=== PATIENT | female | born 1965 | race Caucasian/White ===

== ENCOUNTER → 2019-08-11 17:59 | Outpatient (BNVA) | payer BC, SELFPAY | PROVIDERS: Visit Provider Nurse Practitioner Family | DX: M79.671 Pain in right foot (principal) | CPT/HCPCS: 73630 ==

== ENCOUNTER → 2023-01-05 15:36 | Outpatient (BNVA) | payer OTHER, SELFPAY | PROVIDERS: Visit Provider Emergency Medicine | DX: S82.832A Other fracture of upper and lower end of left fibula, initial encounter for closed fracture (principal); W01.0XXA Fall on same level from slipping, tripping and stumbling without subsequent striking against object, initial encounter | CPT/HCPCS: 73610 ==

== ENCOUNTER → 2023-01-09 10:28 | Outpatient (BNVA) | payer OTHER, SELFPAY | PROVIDERS: Referring Provider Emergency Medicine; Visit Provider Podiatrist Foot & Ankle Surgery | DX: S82.402A Unspecified fracture of shaft of left fibula, initial encounter for closed fracture; W54.1XXA Struck by dog, initial encounter | CPT/HCPCS: 99203 ==

== ENCOUNTER → 2023-01-16 13:02 | Outpatient (BNVA) | payer OTHER, SELFPAY | PROVIDERS: Visit Provider Podiatrist Foot & Ankle Surgery | DX: S92.302A Fracture of unspecified metatarsal bone(s), left foot, initial encounter for closed fracture; S82.402A Unspecified fracture of shaft of left fibula, initial encounter for closed fracture; X58.XXXA Exposure to other specified factors, initial encounter | CPT/HCPCS: 73630; 99213 ==

== ENCOUNTER → 2023-01-30 10:34 | Outpatient (BNVA) | payer OTHER, SELFPAY | PROVIDERS: Visit Provider Podiatrist Foot & Ankle Surgery | DX: S92.332A Displaced fracture of third metatarsal bone, left foot, initial encounter for closed fracture; S92.335A Nondisplaced fracture of third metatarsal bone, left foot, initial encounter for closed fracture; S82.492A Other fracture of shaft of left fibula, initial encounter for closed fracture; X58.XXXA Exposure to other specified factors, initial encounter | CPT/HCPCS: 29405; 73630; 99213 ==

== ENCOUNTER → 2023-02-15 13:16 | Outpatient (BNVA) | payer OTHER, SELFPAY | PROVIDERS: Visit Provider Podiatrist Foot & Ankle Surgery | DX: S92.302A Fracture of unspecified metatarsal bone(s), left foot, initial encounter for closed fracture (principal); S82.402A Unspecified fracture of shaft of left fibula, initial encounter for closed fracture; X58.XXXA Exposure to other specified factors, initial encounter | CPT/HCPCS: 73610; 73630 ==

== ENCOUNTER 2023-02-15 14:40 | Outpatient (CLI) | payer OTHER, SELFPAY | END 2023-02-15 14:41 | disposition home or self-care (01) | LOC: SPT 14:41 | PROVIDERS: Visit Provider Podiatrist Foot & Ankle Surgery | DX: Z46.89 Encounter for fitting and adjustment of other specified devices (principal); S92.302D Fracture of unspecified metatarsal bone(s), left foot, subsequent encounter for fracture with routine healing; S82.402D Unspecified fracture of shaft of left fibula, subsequent encounter for closed fracture with routine healing; X58.XXXD Exposure to other specified factors, subsequent encounter; M25.572 Pain in left ankle and joints of left foot | CPT/HCPCS: 97760; 99213; L1902 ==

== ENCOUNTER → 2023-03-05 13:56 | Outpatient (BNVA) | payer OTHER, SELFPAY | PROVIDERS: Visit Provider Podiatrist Foot & Ankle Surgery | DX: S92.302A Fracture of unspecified metatarsal bone(s), left foot, initial encounter for closed fracture (principal); S82.402A Unspecified fracture of shaft of left fibula, initial encounter for closed fracture; X58.XXXA Exposure to other specified factors, initial encounter | CPT/HCPCS: 99213 ==

== ENCOUNTER → 2023-03-21 14:51 | Outpatient (BNVA) | payer OTHER, SELFPAY | PROVIDERS: Visit Provider Podiatrist Foot & Ankle Surgery | DX: S82.402A Unspecified fracture of shaft of left fibula, initial encounter for closed fracture; W19.XXXA Unspecified fall, initial encounter | CPT/HCPCS: 73630; 99213 ==

== ENCOUNTER → 2023-04-09 12:53 | Outpatient (BNVA) | payer OTHER, SELFPAY | PROVIDERS: Visit Provider Podiatrist Foot & Ankle Surgery | DX: S92.335D Nondisplaced fracture of third metatarsal bone, left foot, subsequent encounter for fracture with routine healing; S92.325D Nondisplaced fracture of second metatarsal bone, left foot, subsequent encounter for fracture with routine healing; S92.342D Displaced fracture of fourth metatarsal bone, left foot, subsequent encounter for fracture with routine healing; X58.XXXD Exposure to other specified factors, subsequent encounter | CPT/HCPCS: 73630; 99213 ==

== ENCOUNTER → 2023-10-11 14:09 | Outpatient (BNVA) | payer OTHER, SELFPAY | PROVIDERS: PCP Family Medicine; Visit Provider Nurse Practitioner | DX: M79.671 Pain in right foot (principal); Z23 Encounter for immunization | CPT/HCPCS: 73630 ==

== ENCOUNTER 2024-02-03 03:03 | Emergency (ER) | payer OTHER, SELFPAY ==
[2024-02-03 03:15] VITALS: BP 151/79; PULSE 81; RESP 20; TEMP 37.1; O2SAT 98; BMI 36.8
[2024-02-03 04:34] VITALS: BP 128/63; PULSE 76; RESP 18; O2SAT 96
[2024-02-03] MEDS: amoxicillin-clav 875-125 mg Tablet 1 TAB PO (05:44)
[2024-02-03] MEDS: dexamethasone 4 mg Tablet 10 MG PO (05:44)
[2024-02-03 05:46] VITALS: BP 129/77; PULSE 78; RESP 16; O2SAT 98
[2024-02-03 05:47] VITALS: BP 129/77; RESP 16; TEMP 37.1; O2SAT 98
--- NOTE | 2024-02-03 05:52 | ED_ITS ---
HPI - URI/Sore Throat General: Chief Complaint: Upper Respiratory Infection Stated Complaint: left side face swelling, slight sob Time Seen by Provider: 02/03/24 04:55 History of Present Illness: 58 year old female presenting with left sided neck swelling. She states that she has been sick for five days or so with upper respiratory symptoms. She has a history of sick contacts. She figured she may have COVID or the flu. She seemed to be getting over her symptoms, but last evening, began to have swelling of the left side of her neck. She says that there is a ?lymph node? that is swollen and tender in the area. She is not having trouble breathing period her throat is not sore. No skin lesions around that area. No fever. Related Data Home Medications Medication Instructions Recorded Confirmed amlodipine 10 mg tablet 10 mg PO DAILY 08/11/19 10/28/23 cyclobenzaprine 15 mg 15 mg PO DAILY 01/05/23 10/28/23 capsule,extended release 24 hr diclofenac potassium 25 mg tablet mg PO 01/05/23 10/28/23 escitalopram oxalate 10 mg tablet 10 mg PO DAILY 01/05/23 10/28/23 glipizide 10 mg tablet, extended 10 mg PO DAILY 01/05/23 10/28/23 release 24 hr hydrochlorothiazide 25 mg tablet 25 mg PO DAILY 01/05/23 10/28/23 pioglitazone 15 mg tablet (Actos) 15 mg PO DAILY 01/05/23 10/28/23 tramadol 50 mg tablet 50 mg PO DAILY 01/05/23 10/28/23 Previous Rx's Medication Instructions Recorded cam walker #1 ea 01/05/23 crutch #2 ea 01/05/23 ASO #1 ea 02/15/23 amoxicillin 500 mg tablet 1,000 mg (2 x 500 mg) PO BID 10 10/28/23 days #40 tabs amoxicillin 875 mg-potassium 1 tab PO BID #20 tabs 02/03/24 clavulanate 125 mg tablet Allergies Allergy/AdvReac Type Severity Reaction Status Date / Time lisinopril AdvReac Mild shortness Verified 10/28/23 12:52 of breath meloxicam [From Mobic] AdvReac Mild rash Verified 10/28/23 12:52 PFS ED PFSH: Social History Smoking and tobacco/nicotine status: current every day tobacco/nicotine user Alcohol intake: never Substance/Drug Use: never Adopted: No Physical Exam Const: COMMON NORMALS: no acute distress GENERAL APPEARANCE: cooperative; not ill appearing and not frail appearing HENMT: COMMON NORMALS: normocephalic, atraumatic and Normal external nose present HEAD & SCALP: normocephalic and atraumatic FACE & SINUS: normal facial exam and face symmetric NOSE: Normal external nose present and Abnormal mucous membranes and turbinates present erythematous Eye: COMMON NORMALS: Equal, round and reactive pupils present and EOMs intact bilaterally PUPIL: Yes Equal, round and reactive pupils present Neck/C-Spine: GENERAL: Yes trachea midline Lymph: LYMPHATIC: lymphadenopathy (left submandibular. single swollen tender node) Chest: CHEST: Yes Symmetrical chest wall rise Resp: COMMON NORMALS: normal respiratory effort, No retractions, No use of accessory muscles and clear to auscultation bilaterally AUSCULTATION: clear to auscultation bilaterally Cardio: COMMON NORMALS: regular rate and regular rhythm RATE: regular rate RHYTHM: regular rhythm GI: COMMON NORMALS: Normal to inspection, nondistended, normoactive bowel sounds present Extremity: COMMON NORMALS: no pedal edema Neuro: NUSRAT COMA SCALE: document GCS findings Nusrat coma scale eye opening: Spontaneous Nusrat coma scale verbal response: Orientated Nusrat coma scale motor response: [place] commands [place] coma scale total score: 15 SENSORY EXAM: Yes extremities (intact) Psych: COMMON NORMALS: speech normal SPEECH: Yes normal speech Skin: COMMON NORMALS: no rashes or lesions noted GENERAL SKIN EXAM: no rashes or lesions noted Course Vital Signs: Vital signs: Vital Signs Temperature 98.8 F 02/03/24 05:47 Pulse Rate 78 02/03/24 05:46 Respiratory Rate 16 02/03/24 05:47 Blood Pressure 129/77 02/03/24 05:47 Pulse Oximetry 98 02/03/24 05:47 Oxygen Delivery Me thod Room Air 02/03/24 05:46 MDM - URI/Sore Throat Medical Decision Making The patient is afebrile here. vitals are normal. There's no airway compromise. She does have a tender, swollen mass inferior to the angle of her mandible. It is not fluctuant. Clinically appears to be a lymph node. Discuss laboratory workup and imaging, but at this point, it likely would not currency exchange specialist. She was given a dose of dexamethasone for the swelling here. She'll be placed on antibiotics. Close outpatient follow up this week. She knows to return for worsening swelling or pain despite treatment, any other new symptoms. No radiology studies performed this visit Discharge Plan Discharge Patient Disposition: Home Clinical Impression: Lymphadenitis Condition: Stable Prescriptions: New amoxicillin-pot clavulanate 875-125 mg tablet 1 tab PO BID Qty: 20 0RF No Action amlodipine 10 mg tablet 10 mg PO DAILY amoxicillin 500 mg tablet 1,000 mg PO BID 10 Days Qty: 40 0RF hydrochlorothiazide 25 mg tablet 25 mg PO DAILY escitalopram oxalate 10 mg tablet 10 mg PO DAILY glipizide 10 mg tablet extended release 24hr 10 mg PO DAILY pioglitazone [Actos] 15 mg tablet 15 mg PO DAILY tramadol 50 mg tablet 50 mg PO DAILY cyclobenzaprine 15 mg capsule,extended release 24hr 15 mg PO DAILY diclofenac potassium 25 mg tablet PO (DME) cam walker See Rx Instructions .ROUTE .MEDSUPPLY Qty: 1 0RF Rx Instructions: As directed (DME) crutch Misc See Rx Instructions miscellaneous .MEDSUPPLY Qty: 2 0RF Rx Instructions: As directed (DME) ASO See Rx Instructions .Route .MEDSUPPLY Qty: 1 0RF Rx Instructions: As directed Discharge Orders: Discharge ED (Routine); Ordered 02/03/24 Ordered By: Song Ames Referrals: Greg Oliver DO [Primary Care Provider] - 1-3 days Patient Instructions: Lymphangitis (ED), Opioid Safety, Pain Management Activity Restrictions/Additional Instructions: Return for worsening swelling despite treatment, shortness of breath, fever despite 2-3 doses of antibiotics, other concerning symptoms. See your doctor this week in follow-up. Coding Level of Care Code ED Barrel Coater for Reynaldo Ford
== END 2024-02-03 05:52 | disposition home or self-care (01) ==
PROVIDERS: Emergency Provider Emergency Medicine; PCP Family Medicine
DX: I88.9 Nonspecific lymphadenitis, unspecified (principal); Z72.0 Tobacco use
CPT/HCPCS: 99283; J8540